=== PATIENT | male | born 1950 | race Caucasian/White ===

== ENCOUNTER → 2017-02-08 | Outpatient (CLI) | payer OTHER, MEDICARE ==
[~2017-02-08] MED LIST: AZIT250T5 PO; B/P MED PO; CITA20TA12 PO; [UNRECOGNIZED DRUG - OTHER] PO
--- NOTE | 2017-02-08 11:58 | Diagnostic Imaging Report ---
INDICATION: Right leg pain and cellulitis. AP and lateral views of the right tibia and fibula are performed. In the distal tibia and fibula, there are areas of cortical irregularity and adjacent calcification. These findings are likely chronic, correlate with history of previous injury in this location. There is no erosive bony lesion. There is no radiopaque foreign body. IMPRESSION: Areas of cortical irregularity and thickening and adjacent calcification of the distal tibia and fibula, these findings are most likely chronic in nature, correlate with previous history of injury. Suggest followup as clinically warranted. There is no other focal abnormality. Dictated by: Dictated on workstation # [id number]
== END ==
LOC: RAD 11:29
PROVIDERS: ATTEND Nurse Practitioner Family
DX: M89.9 Disorder of bone, unspecified (principal); L03.115 Cellulitis of right lower limb; M79.661 Pain in right lower leg
CPT/HCPCS: 73590

== ENCOUNTER 2020-08-29 18:34 | Emergency (ER) | payer MEDICARE, OTHER ==
[~2020-08-29] VITALS: Ht 187 cm; Wt 87.0 kg
[~2020-08-29 18:34] MED LIST changes: +AZIT250T12 PO; -AZIT250T5 PO
--- NOTE | 2020-08-29 18:53 | ED General ---
General Chief Complaint: Cough/Cold/Flu Symptoms Stated Complaint: SOA/LOW O2 Nursing Triage Note: ARRIVED VIA AMB TO ROOM 10. COVID POSITIVE ET TESTED X10 DAYS AGO. STATES HIS PULSE OX IS LOW ET DOES NOT FEEL SOA. HAS BEEN SICK SINCE THE . Nursing Sepsis Screen: No Definite Risk Source of Information: Patient Exam Limitations: No Limitations History of Present Illness Date Seen by Provider: Aug 29, 2020 Time Seen by Provider: 18:51 Initial Comments To ER with reports of low oxygen per his SPO2 monitor at home. He is on day 10 of Covid illness. He denies fevers or chills and states that he overall feels pretty good but is concerned about the hypoxia noted at home. He does not wear oxygen at home. Allergies and Home Medications Allergies Coded Allergies: No Known Drug Allergies (Unverified , 09/26/14) Home Medications Azithromycin 250 Mg Tablet, 250 MG PO UD, (Reported) TAKE 2 TABLETS ON DAY ONE THEN TAKE 1 TABLET DAILY FOR FOUR MORE DAYS Citalopram Hydrobromide 20 Mg Tablet, Unknown Dose PO DAILY, (Reported) [B/P Med] , Unknown Dose PO DAILY, (Reported) [Codiene Cough Syrup] , Unknown Dose PO Q4H PRN for COUGH, (Reported) [Oxygen] , 2 L NA UD Home oxygen at 2 to 4 L per nasal cannula to keep oxygen saturation greater than 90%. Prescribed by: MUNA RUSS on 08/29/202041 Patient Home Medication List Home Medication List Reviewed: Yes Review of Systems Review of Systems Constitutional: see HPI; No chills, No fever EENTM: see HPI Respiratory: see HPI; No dyspnea on exertion, No short of breath Cardiovascular: no symptoms reported Genitourinary: no symptoms reported Musculoskeletal: no symptoms reported Skin: no symptoms reported Psychiatric/Neurological: No Symptoms Reported Hematologic/Lymphatic: No Symptoms Reported Immunological/Allergic: no symptoms reported Past Xuqrkkn-Mhlnkw-Yyhnbb Hx Patient Social History Alcohol Use: Denies Use Smoking Status: Current Everyday Smoker Recent Infectious Disease Expo: No Seasonal Allergies Seasonal Allergies: No Past Medical History Surgeries: Yes Abdominal Respiratory: No Cardiac: Yes Hypertension Neurological: No Reproductive Disorders: No Gastrointestinal: No Musculoskeletal: No Endocrine: No Cancer: No Psychosocial: No Integumentary: No Blood Disorders: No Physical Exam Vital Signs Vital Signs - First Documented 08/29/20 08/29/20 18:40 18:44 Temp 36.4 Pulse 76 Resp 16 Pulse Ox 86 O2 Delivery Room Air O2 Flow Rate 2.00 Capillary Refill : Less Than 3 Seconds Height, Weight, BMI Height: 6'2.00" Weight: 212lbs. oz. 96.752985nb; 24.00 BMI Method: General Appearance: No Apparent Distress, WD/WN, Other (His oxygen saturation is 88% on room air) Eyes: Bilateral Eye Normal Inspection, Bilateral Eye PERRL, Bilateral Eye EOMI HEENT: PERRL/EOMI, TMs Normal Neck: Full Range of Motion, Normal Inspection Respiratory: No Accessory Muscle Use, No Respiratory Distress Cardiovascular: Regular Rate, Rhythm, Normal Peripheral Pulses Gastrointestinal: Non Tender, Soft Extremity: Normal Capillary Refill, Normal Inspection Neurologic/Psychiatric: Alert, Oriented x3 Skin: Normal Color, Warm/Dry Progress/Results/Core Measures Suspected Sepsis Recent Fever Within 48 Hours: No Infection Criteria Present: Documented Infection New/Unexplained Altered Menta: No Sepsis Screen: No Definite Risk SIRS Temperature: Pulse: 76 Respiratory Rate: 16 Laboratory Tests 08/29/20 18:44: White Blood Count 10.0 Blood Pressure / Mean: Laboratory Tests 08/29/20 18:44: Creatinine 1.11, Platelet Count 231, Total Bilirubin 0.3 Results/Orders Lab Results Laboratory Tests Test 08/29/20 18:44 Range/Units White Blood Count 10.0 4.3-11.0 10^3/uL Red Blood Count 4.22 L 4.30-5.52 10^6/uL Hemoglobin 12.4 L 13.3-17.7 g/dL Hematocrit 37 L 40-54 % Mean Corpuscular Volume 88 80-99 fL Mean Corpuscular Hemoglobin 29 25-34 pg Mean Corpuscular Hemoglobin Concent 33 32-36 g/dL Red Cell Distribution Width 12.6 10.0-14.5 % Platelet Count 231 130-400 10^3/uL Mean Platelet Volume 10.1 9.0-12.2 fL Immature Granulocyte % (Auto) 0 % Neutrophils (%) (Auto) 94 H 42-75 % Lymphocytes (%) (Auto) 4 L 12-44 % Monocytes (%) (Auto) 2 0-12 % Eosinophils (%) (Auto) 0 0-10 % Basophils (%) (Auto) 0 0-10 % Neutrophils # (Auto) 9.4 H 1.8-7.8 10^3/uL Lymphocytes # (Auto) 0.4 L 1.0-4.0 10^3/uL Monocytes # (Auto) 0.2 0.0-1.0 10^3/uL Eosinophils # (Auto) 0.0 0.0-0.3 10^3/uL Basophils # (Auto) 0.0 0.0-0.1 10^3/uL Immature Granulocyte # (Auto) 0.0 0.0-0.1 10^3/uL Neutrophils % (Manual) 96 % Lymphocytes % (Manual) 2 % Monocytes % (Manual) 2 % Blood Morphology Comment NORMAL D-Dimer 3.59 H 0.00-0.49 UG/ML Sodium Level 136 135-145 MMOL/L Potassium Level 3.6 3.6-5.0 MMOL/L Chloride Level 102 98-107 MMOL/L Carbon Dioxide Level 19 L 21-32 MMOL/L Anion Gap 15 H 5-14 MMOL/L Blood Urea Nitrogen 28 H 7-18 MG/DL Creatinine 1.11 0.60-1.30 MG/DL Estimat Glomerular Filtration Rate > 60 BUN/Creatinine Ratio 25 Glucose Level 251 H 70-105 MG/DL Calcium Level 8.9 8.5-10.1 MG/DL Corrected Calcium 9.5 8.5-10.1 MG/DL Total Bilirubin 0.3 0.1-1.0 MG/DL Aspartate Amino Transf (AST/SGOT) 53 H 5-34 U/L Alanine Aminotransferase (ALT/SGPT) 55 0-55 U/L Alkaline Phosphatase 75 40-136 U/L C-Reactive Protein High Sensitivity 15.16 H 0.00-0.50 MG/DL Total Protein 7.8 6.4-8.2 GM/DL Albumin 3.3 3.2-4.5 GM/DL Procalcitonin 0.12 H <0.10 NG/ML My Orders Orders - MUNA RUSS APRN Covid 19 Inhouse Test (08/29/20 18:38) Chest 1 View, Ap/Pa Only (08/29/20 18:38) Cbc With Automated Diff (08/29/20 18:38) Comprehensive Metabolic Panel (08/29/20 18:38) Fibrin Degradation Products (08/29/20 18:38) Hs C Reactive Protein (08/29/20 18:38) Procalcitonin (Pct) (08/29/20 18:38) Manual Differential (08/29/20 18:44) Ct Angio Chest W (08/29/20 19:21) Ns Iv 1000 Ml (Sodium Chloride 0.9%) (08/29/20 19:30) Iohexol Injection (Omnipaque 350 Mg/Ml 1 (08/29/20 19:30) Received Contrast (Hold Metformin- Contr (08/29/20 19:30) Ns (Ivpb) (Sodium Chloride 0.9% Ivpb Bag (08/29/20 19:30) Medications Given in ED Current Medications Medications Dose Ordered Sig/Mindy Route Start Time Stop Time Status Last Admin Dose Admin Iohexol 100 ml ONCE ONCE IV 08/29/20 19:30 08/29/20 19:31 DC 08/29/20 20:17 75 ML Sodium Chloride 100 ml ONCE ONCE IV 08/29/20 19:30 08/29/20 19:31 DC 08/29/20 20:17 80 ML Vital Signs/I&O 08/29/20 08/29/20 18:40 18:44 Temp 36.4 Pulse 76 Resp 16 B/P (MAP) Pulse Ox 86 88 O2 Delivery Room Air Nasal Cannula O2 Flow Rate 2.00 Capillary Refill : Less Than 3 Seconds Diagnostic Imaging Diagonstic Imaging: Xray Plain Films/CT/US/NM/MRI: chest Comments NAME: YAO BLACKMON [facility] REC#: [id number] PT STATUS: REG ER : 1950 PHYSICIAN: MUNA RUSS PROOF INSPECTOR ADMIT DATE: 08/29/20/ER Draft Date of Exam:08/29/20 CHEST 1 VIEW, AP/PA ONLY INDICATION: Covid positive, hypoxia Frontal chest obtained at 7:00 hours p.m. and compared to 10/11/2015. Heart and mediastinal silhouette appear unremarkable. There are fairly extensive patchy infiltrates throughout both lungs, suspicious for atypical pneumonia. There is no pneumothorax or pleural fluid. IMPRESSION: Fairly extensive patchy infiltrates are seen throughout both lungs suspicious for atypical pneumonia. Dictated on workstation # [id number] Dict: 08/29/201904 Trans: 08/29/201906 [facility] [id number] Interpreted by: AKUA GAO MD Electronically signed by: NAME: YAO BLACKMON [facility] REC#: [id number] PT STATUS: REG ER : 1950 PHYSICIAN: MUNA RUSS APRN ADMIT DATE: 08/29/20/ER Draft Date of Exam:08/29/20 CT ANGIO CHEST W INDICATION: COVID positive patient with shortness of breath and cough and hypoxia. TECHNIQUE: Multiple contiguous axial images were obtained through the chest after uneventful bolus administration of intravenous contrast. 3D reconstructed CTA MIP acquisitions were also performed. Auto Exposure Controls were utilized during the CT exam to meet ALARA standards for radiation dose reduction. Comparison made to prior chest CT of 10/06/2010. There was no evidence of aortic dissection or aneurysm. The great vessel origins are patent and without stenosis. The pulmonary parenchymal vessels appear well opacified with no CT evidence of pulmonary emboli. There are scattered calcified pleural plaques on both sides, differential diagnosis would include old trauma or old infection or asbestos exposure. There is no mediastinal or hilar adenopathy. There are no enlarged axillary nodes. There is no pleural or pericardial fluid. IMPRESSION: Patient has some baseline chronic interstitial disease when compared to the prior study of 10/06/2010. There do appear to be new superimposed groundglass infiltrates, however, with upper lobe predominance, compatible with superimposed atypical pneumonia. There is no discrete pulmonary parenchymal mass. Visualized portions of the upper abdomen were unremarkable. IMPRESSION: No CT evidence of pulmonary emboli or aortic dissection or aneurysm. There is no pleural fluid. There are acute patchy groundglass infiltrates throughout both lungs compatible with atypical pneumonia, superimposed on chronic lung disease when compared to 10/06/10. There are some calcified pleural plaques on both sides which may represent an old trauma or old infection or asbestos exposure, correlate clinically. Dictated on workstation # [id number] Dict: 08/29/202021 Trans: 08/29/202032 [facility] [id number] Interpreted by: AKUA GAO MD Electronically signed by: NAME: YAO BLACKMON [facility] REC#: [id number] PT STATUS: REG ER : 1950 PHYSICIAN: MUNA RUSS APRN ADMIT DATE: 08/29/20/ER Draft Date of Exam:08/29/20 CT ANGIO CHEST W INDICATION: COVID positive patient with shortness of breath and cough and hypoxia. TECHNIQUE: Multiple contiguous axial images were obtained through the chest after uneventful bolus administration of intravenous contrast. 3D reconstructed CTA MIP acquisitions were also performed. Auto Exposure Controls were utilized during the CT exam to meet ALARA standards for radiation dose reduction. Comparison made to prior chest CT of 10/06/2010. There was no evidence of aortic dissection or aneurysm. The great vessel origins are patent and without stenosis. The pulmonary parenchymal vessels appear well opacified with no CT evidence of pulmonary emboli. There are scattered calcified pleural plaques on both sides, differential diagnosis would include old trauma or old infection or asbestos exposure. There is no mediastinal or hilar adenopathy. There are no enlarged axillary nodes. There is no pleural or pericardial fluid. IMPRESSION: Patient has some baseline chronic interstitial disease when compared to the prior study of 10/06/2010. There do appear to be new superimposed groundglass infiltrates, however, with upper lobe predominance, compatible with superimposed atypical pneumonia. There is no discrete pulmonary parenchymal mass. Visualized portions of the upper abdomen were unremarkable. IMPRESSION: No CT evidence of pulmonary emboli or aortic dissection or aneurysm. There is no pleural fluid. There are acute patchy groundglass infiltrates throughout both lungs compatible with atypical pneumonia, superimposed on chronic lung disease when compared to 10/06/10. There are some calcified pleural plaques on both sides which may represent an old trauma or old infection or asbestos exposure, correlate clinically. Dictated on workstation # [id number] Dict: 08/29/202021 Trans: 08/29/202032 [facility] [id number] Interpreted by: AKUA GAO MD Electronically signed by: Departure Communication (Admissions) Ideally he states he would like to get a prescription for oxygen here and go ho me with oxygen. On arrival his oxygen saturation is 88% on room air. It increases to 95% with 2 L of supplemental oxygen. 2020-discussed with him the recommendation to stay in the hospital but he insists he is going home, he agrees to sign out AGAINST MEDICAL ADVICE. However he does agree to stay for about an hour until I can get some oxygen delivered prior to discharge. He is alert and oriented and capable of making this decision. As mentioned his oxygen saturation is 88% on room air at rest and increases to 95% with 2 L. 2035-spoke with Bridger from [facility] out of [place] as [facility] was unable to accommodate us. They will meet the patient at his house with oxygen Impression Primary Impression: COVID-19 Additional Impression: Hypoxia Disposition: 07 AGAINST MEDICAL ADVICE Condition: Against Medical Advice Departure-Patient Inst. Decision time for Depature: 20:44 Referrals: PIPPA ALLEN MD (PCP/Family) Primary Care Physician Patient Instructions: Coronavirus Disease 2019 (COVID-19) Overview Add. Discharge Instructions: Home medical equipment will meet you at your house this evening to set up home oxygen. Use this at 2 to 4 L to keep your oxygen saturation greater than 90%. Take a daily baby aspirin as well. Return to ER for any worsening. All discharge instructions reviewed with patient and/or family. Voiced understanding. Scripts [Oxygen] No Conflict Check 2 L NA UD, #1 EA Home oxygen at 2 to 4 L per nasal cannula to keep oxygen saturation greater than 90%. Prov: MUNA RUSS APRN 08/29/20 Copy Copies To 1: PIPPA ALLEN MD, PETER J APRN Aug 29, 2020 18:53
[2020-08-29 18:56] LABS: BASOPHILS % (AUTO) 0 % (0-10); EOSINOPHILS % (AUTO) 0 % (0-10); HEMATOCRIT 37 % (40-54); HEMOGLOBIN 12.4 g/dL (13.3-17.7); LYMPHOCYTES # (AUTO) 0.4 10^3/uL (1.0-4.0); LYMPHOCYTES % (AUTO) 4 % (12-44); MEAN CORPUSCULAR HEMOGLOBIN 29 pg (25-34); MEAN CORPUSCULAR HGB CONC 33 g/dL (32-36); MEAN CORPUSCULAR VOLUME 88 fL (80-99); MEAN PLATELET VOLUME 10.1 fL (9.0-12.2); MONOCYTES # (AUTO) 0.2 10^3/uL (0.0-1.0); MONOCYTES % (AUTO) 2 % (0-12); NEUTROPHILS # (AUTO) 9.4 10^3/uL (1.8-7.8); NEUTROPHILS % (AUTO) 94 % (42-75); PLATELET COUNT 231 10^3/uL (130-400)
--- NOTE | 2020-08-29 18:58 | NUR ---
REPORT GIVEN TO
--- NOTE | 2020-08-29 19:08 | Diagnostic Imaging Report ---
INDICATION: Covid positive, hypoxia Frontal chest obtained at 7:00 hours p.m. and compared to 10/11/2015. Heart and mediastinal silhouette appear unremarkable. There are fairly extensive patchy infiltrates throughout both lungs, suspicious for atypical pneumonia. There is no pneumothorax or pleural fluid. IMPRESSION: Fairly extensive patchy infiltrates are seen throughout both lungs suspicious for atypical pneumonia. Dictated by: Dictated on workstation # [id number]
[2020-08-29 19:11] LABS: ALBUMIN 3.3 GM/DL (3.2-4.5); CHLORIDE 102 MMOL/L (98-107); POTASSIUM 3.6 MMOL/L (3.6-5.0); SODIUM 136 MMOL/L (135-145)
[2020-08-29 19:13] LABS: CALCIUM 8.9 MG/DL (8.5-10.1)
[2020-08-29 19:14] LABS: GLUCOSE 251 MG/DL (70-105); TOTAL PROTEIN 7.8 GM/DL (6.4-8.2)
[2020-08-29 19:15] LABS: CARBON DIOXIDE 19 MMOL/L (21-32)
[2020-08-29 19:16] LABS: BILIRUBIN,TOTAL 0.3 MG/DL (0.1-1.0)
[2020-08-29 19:17] LABS: ALKALINE PHOSPHATASE 75 U/L (40-136)
[2020-08-29 19:18] LABS: CREATININE SERUM 1.11 MG/DL (0.60-1.30); GFR ESTIMATED > 60
[2020-08-29 19:19] LABS: BUN/CREATININE RATIO 25; LYMPHOCYTES % (MANUAL) 2 %; MONOCYTES % (MANUAL) 2 %; NEUTROPHILS % (MANUAL) 96 %; RBC MORPH NORMAL
[2020-08-29 19:20] LABS: ALANINE AMINOTRANSFERASE 55 U/L (0-55)
[2020-08-29] MEDS ORDERED: NS IV 1000 ML 1,000 ML IV SCH (19:30)
[2020-08-29] MEDS ORDERED: IOHEXOL 350 MG/ML 100 ML (OMNIPAQUE 350) VIAL IV ONE (19:30)
[2020-08-29] MEDS ORDERED: NS 100 ML (IVPB) BAG IV ONE (19:30)
[2020-08-29] MEDS ORDERED: HOLD METFORMIN - RECEIVED CONTRAST 20 ML VIAL IV SCH (19:30)
--- NOTE | 2020-08-29 20:33 | Diagnostic Imaging Report ---
INDICATION: COVID positive patient with shortness of breath and cough and hypoxia. TECHNIQUE: Multiple contiguous axial images were obtained through the chest after uneventful bolus administration of intravenous contrast. 3D reconstructed CTA MIP acquisitions were also performed. Auto Exposure Controls were utilized during the CT exam to meet ALARA standards for radiation dose reduction. Comparison made to prior chest CT of 10/06/2010. There was no evidence of aortic dissection or aneurysm. The great vessel origins are patent and without stenosis. The pulmonary parenchymal vessels appear well opacified with no CT evidence of pulmonary emboli. There are scattered calcified pleural plaques on both sides, differential diagnosis would include old trauma or old infection or asbestos exposure. There is no mediastinal or hilar adenopathy. There are no enlarged axillary nodes. There is no pleural or pericardial fluid. IMPRESSION: Patient has some baseline chronic interstitial disease when compared to the prior study of 10/06/2010. There do appear to be new superimposed groundglass infiltrates, however, with upper lobe predominance, compatible with superimposed atypical pneumonia. There is no discrete pulmonary parenchymal mass. Visualized portions of the upper abdomen were unremarkable. IMPRESSION: No CT evidence of pulmonary emboli or aortic dissection or aneurysm. There is no pleural fluid. There are acute patchy groundglass infiltrates throughout both lungs compatible with atypical pneumonia, superimposed on chronic lung disease when compared to 10/06/10. There are some calcified pleural plaques on both sides which may represent an old trauma or old infection or asbestos exposure, correlate clinically. Dictated by: Dictated on workstation # [id number]
[2020-08-29] MEDS ORDERED: Oxygen (20:42)
[2020-08-29 20:50] VITALS: BP 139/87
== END 2020-08-29 20:53 | disposition left against medical advice (07) ==
LOC: EDUNIT# 18:34 → ER 18:35
DX: U07.1 COVID-19 (principal); I10 Essential (primary) hypertension; F17.200 Nicotine dependence, unspecified, uncomplicated
CPT/HCPCS: 36415; 71045; 71275; 80053; 84145; 85007; 85027; 85379; 86141

== ENCOUNTER → 2021-01-08 | Outpatient (CLI) | payer MEDICARE ==
[~2021-01-08] MED LIST changes: +Oxygen
--- NOTE | 2021-01-08 11:36 | Diagnostic Imaging Report ---
HISTORY: Right-sided chest pain for 2 weeks. COMPARISON: 08/29/2020 TECHNIQUE: Frontal view of the chest FINDINGS: There are subtle patchy airspace opacities in the lungs bilaterally. Aeration is markedly improved since 08/29/2020. There is no pleural effusion or pneumothorax. The cardiac silhouette is normal in size. IMPRESSION:. Mild patchy opacities in the lungs bilaterally, markedly improved compared to 08/29/2020. This may represent residual opacity from the prior pneumonia, versus recurrence. Dictated by: Dictated on workstation # [id number]
== END ==
LOC: RAD 11:01
DX: R07.89 Other chest pain (principal); J98.4 Other disorders of lung
CPT/HCPCS: 71045

== ENCOUNTER 2022-12-30 09:53 | Emergency (ER) | payer MEDICARE, OTHER ==
[~2022-12-30] VITALS: Ht 187.9 cm; Wt 90.7 kg
[2022-12-30] MEDS ORDERED: morphine INJ 10 MG/ML 1ML (SYR OR VIAL) IVP STA (10:47)
--- NOTE | 2022-12-30 10:58 | ED Abdominal Pain ---
General Chief Complaint: Abdominal/GI Problems Stated Complaint: ABD PAIN Nursing Triage Note: PT AMB TO RM 3 WITH COMPLAINT OF ABD PAIN. STATES HAS HAD PAIN INTERMITTENTLY SINCE . WAS STARTED ON [facility] AND [facility] FRIDAY Source of Information: Patient Exam Limitations: No Limitations History of Present Illness Date Seen by Provider: December 30, 2022 Time Seen by Provider: 09:55 Initial Comments 72-year-old male with no pertinent past medical history coming in due to right lower quadrant abdominal pain. Has been happening off and on for 3 months, worsening certainly over the past month. Was initially in his lower abdomen, now more towards the right side. He has been on ciprofloxacin and metronidazole for the past 3 days for possible diverticulitis, has not had any imaging. Reportedly he thinks his labs were normal within the past 2 weeks. Denies any fever, nausea, vomiting. Had a normal bowel movement this morning with no bl ood. Is otherwise denying any other acute complaints. Allergies and Home Medications Allergies Coded Allergies: No Known Drug Allergies (Unverified , 09/26/14) Patient Home Medication List Home Medication List Reviewed: Yes Azithromycin (Azithromycin) 250 Mg Tablet, 250 MG PO UD, (Reported) Entered as Reported by: DEBBIE JONES on 10/11/151952 Citalopram Hydrobromide (Celexa) 20 Mg Tablet, Unknown Dose PO DAILY, (Reported) Entered as Reported by: DEBBIE JONES on 10/11/151955 [B/P Med] , Unknown Dose PO DAILY, (Reported) Entered as Reported by: DEBBIE JONES on 10/11/151955 [Codiene Cough Syrup] , Unknown Dose PO Q4H PRN for COUGH, (Reported) Entered as Reported by: DEBBIE JONES on 10/11/151955 [Oxygen] , 2 L NA UD Prescribed by: MUNA RUSS on 08/29/202041 Review of Systems Review of Systems Constitutional: No fever EENTM: No Symptoms Reported Respiratory: No Symptoms Reported Cardiovascular: No Symptoms Reported Gastrointestinal: See HPI Genitourinary: No Symptoms Reported Musculoskeletal: no symptoms reported Skin: no symptoms reported Psychiatric/Neurological: No Symptoms Reported Endocrine: No Symptoms Reported Hematologic/Lymphatic: No Symptoms Reported Past Tegclhb-Xkncjj-Octyxa Hx Patient Social History Tobacco Use?: No Use of E-Cig and/or Vaping dev: No Substance use?: No Alcohol Use?: No Pt feels they are or have been: No Seasonal Allergies Seasonal Allergies: No Past Medical History Surgeries: Yes Abdominal Respiratory: No Cardiac: Yes Hypertension Neurological: No Reproductive Disorders: No Gastrointestinal: No Musculoskeletal: No Endocrine: No Cancer: No Psychosocial: No Integumentary: No Blood Disorders: No Physical Exam Vital Signs Vital Signs - First Documented 12/30/22 10:10 Temp 36.5 Pulse 89 Resp 16 B/P (MAP) 152/103 (119) Pulse Ox 95 O2 Delivery Room Air Capillary Refill : Less Than 3 Seconds Height/Weight/BMI Height: 6'2.00" Weight: 212lbs. oz. 96.161915no; 25.00 BMI Method: General Appearance: WD/WN, no apparent distress HEENT: PERRL/EOMI, normal ENT inspection, pharynx normal Neck: non-tender, full range of motion, supple, normal inspection Respiratory: chest non-tender, lungs clear, normal breath sounds, no respiratory distress, no accessory muscle use Cardiovascular: regular rate, rhythm, no edema, no murmur Gastrointestinal: normal bowel sounds, soft; No distended, No guarding, No rebound; tenderness (Lower abdominal pain), hernia (Easily reducible periumbilical hernia) Extremities: normal range of motion, non-tender, normal inspection, no pedal edema, no calf tenderness, normal capillary refill Back: normal inspection, no CVA tenderness Neurologic/Psychiatric: no motor/sensory deficits, alert, normal mood/affect Skin: normal color, warm/dry Progress/Results/Core Measures Results/Orders Lab Results Laboratory Tests Test 12/30/22 10:50 12/30/22 11:10 Range/Units Urine Color ORANGE Urine Clarity CLEAR Urine pH 6.0 5-9 Urine Specific [place] >=1.030 1.016-1.022 Urine Protein NEGATIVE NEGATIVE Urine Glucose (UA) NEGATIVE NEGATIVE Urine Ketones NEGATIVE NEGATIVE Urine Nitrite NEGATIVE NEGATIVE Urine Bilirubin NEGATIVE NEGATIVE Urine Urobilinogen 0.2 < = 1.0 MG/DL Urine Leukocyte Esterase NEGATIVE NEGATIVE Urine RBC (Auto) NEGATIVE NEGATIVE Urine RBC NONE /HPF Urine WBC NONE /HPF Urine Squamous Epithelial Cells RARE /HPF Urine Crystals NONE /LPF Urine Bacteria NEGATIVE /HPF Urine Casts NONE /LPF Urine Mucus SMALL H /LPF Urine Culture Indicated NO White Blood Count 6.2 4.3-11.0 10^3/uL Red Blood Count 6.02 H 4.30-5.52 10^6/uL Hemoglobin 17.6 13.3-17.7 g/dL Hematocrit 54 40-54 % Mean Corpuscular Volume 89 80-99 fL Mean Corpuscular Hemoglobin 29 25-34 pg Mean Corpuscular Hemoglobin Concent 33 32-36 g/dL Red Cell Distribution Width 14.5 10.0-14.5 % Platelet Count 182 130-400 10^3/uL Mean Platelet Volume 10.8 9.0-12.2 fL Immature Granulocyte % (Auto) 0 % Neutrophils (%) (Auto) 65 42-75 % Lymphocytes (%) (Auto) 20 12-44 % Monocytes (%) (Auto) 13 H 0-12 % Eosinophils (%) (Auto) 2 0-10 % Basophils (%) (Auto) 0 0-10 % Neutrophils # (Auto) 4.1 1.8-7.8 10^3/uL Lymphocytes # (Auto) 1.2 1.0-4.0 10^3/uL Monocytes # (Auto) 0.8 0.0-1.0 10^3/uL Eosinophils # (Auto) 0.1 0.0-0.3 10^3/uL Basophils # (Auto) 0.0 0.0-0.1 10^3/uL Immature Granulocyte # (Auto) 0.0 0.0-0.1 10^3/uL Prothrombin Time 15.0 H 12.2-14.7 SEC INR Comment 1.2 0.8-1.4 Activated Partial Thromboplast Time 34 24-35 SEC Sodium Level 139 135-145 MMOL/L Potassium Level 3.8 3.6-5.0 MMOL/L Chloride Level 108 H 98-107 MMOL/L Carbon Dioxide Level 20 L 21-32 MMOL/L Anion Gap 11 5-14 MMOL/L Blood Urea Nitrogen 20 H 7-18 MG/DL Creatinine 0.95 0.60-1.30 MG/DL Estimat Glomerular Filtration Rate 85 BUN/Creatinine Ratio 21 Glucose Level 146 H 70-105 MG/DL Calcium Level 9.5 8.5-10.1 MG/DL Corrected Calcium 9.7 8.5-10.1 MG/DL Total Bilirubin 0.7 0.1-1.0 MG/DL Aspartate Amino Transf (AST/SGOT) 91 H 5-34 U/L Alanine Aminotransferase (ALT/SGPT) 35 0-55 U/L Alkaline Phosphatase 81 40-136 U/L C-Reactive Protein High Sensitivity 2.22 H 0.00-0.50 MG/DL Total Protein 7.8 6.4-8.2 GM/DL Albumin 3.7 3.2-4.5 GM/DL Lipase 12 8-78 U/L My Orders Orders - XAVIER CURRY MD Cbc With Automated Diff (12/30/22 10:47) Comprehensive Metabolic Panel (12/30/22 10:47) Hs C Reactive Protein (12/30/22 10:47) Lipase (12/30/22 10:47) Protime With Inr (12/30/22 10:47) Partial Thromboplastin Time (12/30/22 10:47) Ua Culture If Indicated (12/30/22 10:47) Ct Abdomen/Pelvis W (12/30/22 10:47) Ed Iv/Invasive Line Start (12/30/22 10:47) Morphine Injection (Morphine Injection (12/30/22 10:47) Iohexol Injection (Omnipaque 350 Mg/Ml 1 (12/30/22 11:45) Received Contrast (Hold Metformin- Contr (12/30/22 11:45) Ns (Ivpb) (Sodium Chloride 0.9% Ivpb Bag (12/30/22 11:45) Medications Given in ED Current Medications Medications Dose Ordered Sig/Mindy Route Start Time Stop Time Status Last Admin Dose Admin Iohexol 100 ml ONCE ONCE IV 12/30/22 11:45 12/30/22 11:49 DC 12/30/22 11:54 80 ML Sodium Chloride 100 ml ONCE ONCE IV 12/30/22 11:45 12/30/22 11:49 DC 12/30/22 11:54 80 ML Vital Signs/I&O 12/30/22 10:10 Temp 36.5 Pulse 89 Resp 16 B/P (MAP) 152/103 (119) Pulse Ox 95 O2 Delivery Room Air Blood Pressure Mean: 119 Progress Progress Note : Progress Note 73 male with above history coming in due to abdominal pain. ABCs were intact and vitals were stable on presentation. Physical exam with abdominal pain but no signs of peritonitis. An IV was placed and basic labs were obtained. His INR is 1.2, AST slightly elevated around 90, normal ALT, normal bilirubin, normal creatinine, normal white blood cell count, urinalysis without evidence of infection. CT imaging concerning for a large liver mass roughly 10 cm that linda [place] has hepatocellular carcinoma especially given his history of hepatitis C. He also has portal venous thrombosis. I contacted the oncologist on-call, and she just recommended outpatient Xarelto or Eliquis. She states this would be an outpatient work-up and does not require admission unless his pain is not under control. Abdomen had a [id number] discussion with the radiologist on-call, and he recommended getting an outpatient MRI of the liver with and without contrast to further diagnose this. I will send the patient home with prescriptions for blood thinners as well as pain medication. I believe he is otherwise stable for discharge with outpatient follow-up. He was sent home with strict return precautions. Diagnostic Imaging Diagonstic Imaging: CT (abd/pelvis) Comments NAME: YAO BLACKMON [facility] REC#: [id number] PT STATUS: REG ER : 1950 PHYSICIAN: XAVIER CURRY MD ADMIT DATE: 12/30/22/ER Draft Date of Exam:12/30/22 CT ABDOMEN/PELVIS W PROCEDURE: CT abdomen and pelvis with contrast. TECHNIQUE: Multiple contiguous axial images were obtained through the abdomen and pelvis after administration of intravenous contrast. Auto Exposure Controls were utilized during the CT exam to meet ALARA standards for radiation dose reduction. All CT scans use one or more of the following dose optimizing techniques: automated exposure control, MA and/or KvP adjustment based on patient size and exam type or iterative reconstruction. INDICATION: Right-sided abdominal pain radiating to the back. No prior studies are available for comparison. The lung bases are clear. There appears to be a large mass located in the right lobe of the liver, measuring approximately 10 cm in size. The liver does have a somewhat lobulated contour. There appears to be thrombus within the main portal vein. Pancreas and spleen are unremarkable. No adrenal mass is detected. Kidneys are unremarkable. There is no hydronephrosis. Aorta is calcified but nonaneurysmal. There is a small fat-containing umbilical hernia. Small and large bowel loops are of normal caliber. There are diverticula within the sigmoid but no evidence of acute diverticulitis. No abdominal or pelvic lymphadenopathy is detected. The bladder and prostate are unremarkable. IMPRESSION: 1. Large right lobe liver mass with findings also consistent with portal vein thrombosis. Patient does have a cirrhotic liver morphology and features are concerning for hepatocellular carcinoma with bland or tumor thrombus within the portal vein. No other significant abnormality is identified apart from uncomplicated diverticulosis. Dictated on workstation # [id number] Dict: 12/30/22 1210 Trans: 12/30/22 [address] [facility], [place] [id number] Interpreted by: CODI THAYER MD Electronically signed by: Departure Impression Primary Impression: Liver mass Additional Impressions: Portal vein thrombosis Hepatitis C virus infection resolved after antiviral drug therapy Disposition: HOME, SELF-CARE Condition: Stable Departure-Patient Inst. Decision time for Depature: 14:00 Referrals: ROHIT ALVAREZ APRN (PCP/Family) Primary Care Physician Patient Instructions: Liver Cancer (DC), Going Home on Blood Thinners Add. Discharge Instructions: It does appear like you likely have liver cancer, and likely it is called hepatocellular carcinoma. This will be diagnosed via an MRI. Then you will need to follow-up with a cancer specialist of your choosing. Dr. Mckenzie can see you here in [place] if you would like, and her number is in this paperwork. If you would like to go to another facility, you can call and schedule an appointment with them as well. [facility] has a liver cancer specialist. You can schedule an appointment at [phone]. You also have a blood clot in your liver and will be on blood thinners for this. The medication is called Eliquis. This was sent to your pharmacy. Call your regular doctor to discuss increasing your pain medication to help with your pain. Scripts Apixaban (Eliquis) 5 Mg Tablet 5 MG PO BID for 30 Days, #74 TAB TAKE 2 TABLETS BID X 7 DAYS, THEN 1 TABLET BID Prov: XAVIER CURRY MD 12/30/22 Work/School Note: Family Work Note, Patient Received Medical Care In the Emergency Department On: December 30, 2022 Patient Will Be Able to Return to Work/School On: December 31, 2022 Work Release Form Date Seen in the Emergency Department: December 30, 2022 Return to Work: January 01, 2023 Restrictions: No Restrictions XAVIER CURRY MD December 30, 2022 10:58
[2022-12-30 11:04] LABS: BILIRUBIN,URINE NEGATIVE (NEGATIVE); CLARITY,URINE CLEAR; COLOR,URINE ORANGE; GLUCOSE, URINE (UA) NEGATIVE (NEGATIVE); KETONES,URINE NEGATIVE (NEGATIVE); LEUKOCYTE ESTERASE ,URINE NEGATIVE (NEGATIVE); NITRITE,URINE NEGATIVE (NEGATIVE); PROTEIN,URINE NEGATIVE (NEGATIVE)
[2022-12-30 11:14] LABS: BASOPHILS % (AUTO) 0 % (0-10); EOSINOPHILS # (AUTO) 0.1 10^3/uL (0.0-0.3); EOSINOPHILS % (AUTO) 2 % (0-10); HEMATOCRIT 54 % (40-54); HEMOGLOBIN 17.6 g/dL (13.3-17.7); LYMPHOCYTES # (AUTO) 1.2 10^3/uL (1.0-4.0); LYMPHOCYTES % (AUTO) 20 % (12-44); MEAN CORPUSCULAR HEMOGLOBIN 29 pg (25-34); MEAN CORPUSCULAR HGB CONC 33 g/dL (32-36); MEAN CORPUSCULAR VOLUME 89 fL (80-99); MEAN PLATELET VOLUME 10.8 fL (9.0-12.2); MONOCYTES # (AUTO) 0.8 10^3/uL (0.0-1.0); MONOCYTES % (AUTO) 13 % (0-12); NEUTROPHILS # (AUTO) 4.1 10^3/uL (1.8-7.8); NEUTROPHILS % (AUTO) 65 % (42-75); PLATELET COUNT 182 10^3/uL (130-400); WHITE BLOOD COUNT 6.2 10^3/uL (4.3-11.0)
[2022-12-30 11:17] LABS: BACTERIA,URINE NEGATIVE /HPF; SQUAMOUS EPITHELIAL CELL,UR RARE /HPF
[2022-12-30 11:30] LABS: ALBUMIN 3.7 GM/DL (3.2-4.5); POTASSIUM 3.8 MMOL/L (3.6-5.0)
[2022-12-30 11:31] LABS: CALCIUM 9.5 MG/DL (8.5-10.1)
[2022-12-30 11:32] LABS: TOTAL PROTEIN 7.8 GM/DL (6.4-8.2)
[2022-12-30 11:34] LABS: BILIRUBIN,TOTAL 0.7 MG/DL (0.1-1.0)
[2022-12-30 11:35] LABS: INR 1.2 (0.8-1.4)
[2022-12-30 11:36] LABS: CREATININE SERUM 0.95 MG/DL (0.60-1.30)
[2022-12-30] MEDS ORDERED: IOHEXOL 350 MG/ML 100 ML (OMNIPAQUE 350) VIAL IV ONE (11:45)
[2022-12-30] MEDS ORDERED: NS 100 ML (IVPB) BAG IV ONE (11:45)
[2022-12-30] MEDS ORDERED: HOLD METFORMIN - RECEIVED CONTRAST 20 ML VIAL IV SCH (11:45)
--- NOTE | 2022-12-30 13:17 | Diagnostic Imaging Report ---
PROCEDURE: CT abdomen and pelvis with contrast. TECHNIQUE: Multiple contiguous axial images were obtained through the abdomen and pelvis after administration of intravenous contrast. Auto Exposure Controls were utilized during the CT exam to meet ALARA standards for radiation dose reduction. All CT scans use one or more of the following dose optimizing techniques: automated exposure control, MA and/or KvP adjustment based on patient size and exam type or iterative reconstruction. INDICATION: Right-sided abdominal pain radiating to the back. No prior studies are available for comparison. The lung bases are clear. There appears to be a large mass located in the right lobe of the liver, measuring approximately 10 cm in size. The liver does have a somewhat lobulated contour. There appears to be thrombus within the main portal vein. Pancreas and spleen are unremarkable. No adrenal mass is detected. Kidneys are unremarkable. There is no hydronephrosis. Aorta is calcified but nonaneurysmal. There is a small fat-containing umbilical hernia. Small and large bowel loops are of normal caliber. There are diverticula within the sigmoid but no evidence of acute diverticulitis. No abdominal or pelvic lymphadenopathy is detected. The bladder and prostate are unremarkable. IMPRESSION: 1. Large right lobe liver mass with findings also consistent with portal vein thrombosis. Patient does have a cirrhotic liver morphology and features are concerning for hepatocellular carcinoma with bland or tumor thrombus within the portal vein. No other significant abnormality is identified apart from uncomplicated diverticulosis. Dictated by: Dictated on workstation # [id number]
[2022-12-30] MEDS ORDERED: APIX5TAB PO (14:09)
[2022-12-30 14:27] VITALS: BP 146/90
== END 2022-12-30 14:27 | disposition home or self-care (01) ==
LOC: EDUNIT# 09:53 → ER 09:55
DX: I81 Portal vein thrombosis (principal); R16.0 Hepatomegaly, not elsewhere classified; K42.9 Umbilical hernia without obstruction or gangrene
CPT/HCPCS: 36415; 74177; 80053; 81000; 83690; 85025; 85610; 85730; 86141

== ENCOUNTER → 2022-12-31 | Outpatient (CLI) | payer MEDICARE, OTHER ==
[~2022-12-31] MED LIST changes: +APIX5TAB PO; +GADOTERATE 0.5 MMOL/ML (CLARISCAN) 20 ML VIAL IV ONE
--- NOTE | 2022-12-31 10:42 | Diagnostic Imaging Report ---
EXAMINATION: MRI of the abdomen with and without contrast. TECHNIQUE: Multiplanar, multisequence MR images of the abdomen were obtained with and without intravenous contrast. HISTORY: Liver mass. COMPARISON: None available. FINDINGS: Liver: Liver surface is nodular consistent with cirrhosis. There is a 11 x 12 cm mass in the right liver. There is arterial hyperenhancement and washout on delayed imaging. There is enhancing tumor in the right portal vein. 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 No other liver lesions are seen. Ducts: No biliary ductal dilation. Gallbladder: Absent. Pancreas: Normal. Spleen: Normal. Adrenals: Normal. Kidneys: No suspicious lesions. No hydronephrosis. Bowel: Normal. Other: No lymphadenopathy. Visualized portions of the thorax are normal. No suspicious osseus lesions. IMPRESSION: 1. LI-RADS 5 lesion in the right liver measuring 11 x 12 cm with tumor in vein in the right portal vein. 2. Occluded right hepatic vein. Dictated by: Dictated on workstation # [id number]
== END ==
LOC: RAD 08:51
PROVIDERS: ATTEND Emergency Medicine
DX: K76.9 Liver disease, unspecified (principal); I87.8 Other specified disorders of veins
CPT/HCPCS: 74183

== ENCOUNTER 2023-01-01 14:29 | Outpatient (RCR) | payer MEDICARE, OTHER ==
[~2023-01-01 14:29] MED LIST changes: -GADOTERATE 0.5 MMOL/ML (CLARISCAN) 20 ML VIAL IV ONE
[2023-01-01 21:45] LABS: HEPATITIS C ANTIBODY C Reactive (Non-Reactive)
== END 2023-01-15 | disposition home or self-care (01) ==
LOC: ONC 14:29
PROVIDERS: ATTEND Internal Medicine Hematology & Oncology
DX: C22.0 Liver cell carcinoma (principal); I81 Portal vein thrombosis; B18.2 Chronic viral hepatitis C; I10 Essential (primary) hypertension; F10.21 Alcohol dependence, in remission
CPT/HCPCS: 80074; 82105; 83615; 87522; 87902